=== PATIENT | male | born 2000 | race Two or more races ===

== ENCOUNTER 2021-10-24 09:51 | Emergency (ER) | payer MEDICAID ==
[~2021-10-24] VITALS: Ht 170.2 cm; Wt 56.8 kg
--- NOTE | 2021-10-24 11:44 | NUR ---
PT CHANGED INTO [facility] WITHOUT ISSUE
[2021-10-24 11:55] LABS: URINE AMPHETAMINE SCREEN NEGATIVE (Neg); URINE BARBITUATE SCREEN NEGATIVE (Neg); URINE BENZODIAZEPINES SCREEN POSITIVE (Neg); URINE CANNABINOID SCREEN POSITIVE (Neg); URINE COCAINE SCREEN POSITIVE (Neg); URINE METHADONE SCREEN NEGATIVE (Neg); URINE OPIATE SCREEN NEGATIVE (Neg); URINE PHENCYCLIDINE SCREEN NEGATIVE (Neg)
[2021-10-24 12:22] LABS: ALANINE AMINOTRANSFERASE 14 U/L (12-78); ALBUMIN 4.3 G/DL (3.4-5.0); ALBUMIN/GLOBULIN RATIO 1.2 (1.1-1.5); ALKALINE PHOSPHATASE 105 IU/L (46-116); ANION GAP 9 (8-16); ASPARTATE AMINO TRANSFERASE 15 U/L (10-37); BLOOD UREA NITROGEN 16 MG/DL (7-18); BUN/CREATININE RATIO 15.8 (5.4-32.0); CALCIUM 9.3 MG/DL (8.5-10.1); CHLORIDE 104 MMOL/L (99-107); CREATININE 1.01 MG/DL (0.60-1.10); GLUCOSE 96 MG/DL (70-104); POTASSIUM 3.6 MMOL/L (3.5-5.1); SODIUM 140 MMOL/L (135-145); TOTAL CARBON DIOXIDE 27.2 MMOL/L (24-32); TOTAL PROTEIN 7.8 G/DL (6.4-8.2); eGFR > 90 ML/MIN
[2021-10-24 12:54] LABS: BASOPHILS # (AUTO) 0.1 X10'3 (0-0.2); BASOPHILS % (AUTO) 0.6 % (0-1); EOSINOPHILS # (AUTO) 0.2 X10'3 (0-0.9); EOSINOPHILS % (AUTO) 2.3 % (0-6); HEMATOCRIT 46.2 % (42.0-52.0); HEMOGLOBIN 15.8 g/dl (14.0-17.9); LYMPHOCYTES # (AUTO) 1.2 X10'3 (1.1-4.8); LYMPHOCYTES % (AUTO) 12.4 % (21-51); MEAN CORPUSCULAR HEMOGLOBIN 30.3 PG (27.0-31.0); MEAN CORPUSCULAR HGB CONC 34.2 g/dL (33.0-36.5); MEAN CORPUSCULAR VOLUME 88.5 FL (78-98); MEAN PLATELET VOLUME 7.6 FL (7.4-10.4); MONOCYTES # (AUTO) 0.7 X10'3 (0-0.9); MONOCYTES % (AUTO) 7.2 % (2-12); NEUTROPHILS # (AUTO) 7.2 X10'3 (1.8-7.7); NEUTROPHILS % (AUTO) 77.5 % (42-75); PLATELET COUNT 271 X10'3 (140-440); RED BLOOD COUNT 5.22 X10'6 (4.70-6.10); RED CELL DISTRIBUTION WIDTH 13.4 % (11.5-14.5); WHITE BLOOD COUNT 9.3 X10'3 (4.5-11.0)
--- NOTE | 2021-10-24 13:04 | NUR ---
pt eloped out of ed bed [address] into [address]. security arrived and pt escorted back to room. pt yelling at staff stating he doesnt need to be here. verbal order from edmd lulu received for haldol 10mg, ativan 2mg, and benadryl 50mg im x1 dose now. order placed as received
[2021-10-24] MEDS ORDERED: LORazepam 2 mg/ml vial IM ONE (13:05)
[2021-10-24] MEDS ORDERED: diphenhydrAMINE 50 mg/ml inj IM ONE (13:05)
[2021-10-24] MEDS ORDERED: haloperidol lactate 5mg/ml inj IM ONE ×2 (13:05→21:25)
--- NOTE | 2021-10-24 14:03 | NUR ---
[facility] MENTAL HEALTH WORKER AT THE BEDSIDE TO EVALUATE PATIENT.
--- NOTE | 2021-10-24 15:56 | NUR ---
KATT HANSON WANTS HIM TO CALL BACK [phone] WHEN HE WAKES UP.
--- NOTE | 2021-10-24 16:49 | NUR ---
[facility] CALLED FOR INFORMATION ABOUT PATIENT, TO SEE IF HE QUALIFIES FOR PLACEMENT THERE.
--- NOTE | 2021-10-24 17:45 | NUR ---
Pt ambulated to bed #26 from main ED. Pt was calm/cooperative. Received report from ANDRE Jones
--- NOTE | 2021-10-24 18:04 | NUR ---
PT ACCEDPTED TO [facility]. ACCEPTING PROVIDER Vin NOLAN MD.
--- NOTE | 2021-10-24 18:06 | NUR ---
FAXED ETOH, UA, COVID-19 TO [facility].
--- NOTE | 2021-10-24 19:15 | NUR ---
Patient is awake, sitting at bedside. He states extreme frustration because his family doesn't want to allow him to come home. The patient makes direct contact with this proposal manager writer. He presents as disheveled. Patient denies S/I or H/I, or any hallucinations at this time. He tells this proposal manager writer that he has went days without sleeping. Patient denies taking home psychiatric medications, he states "I prefer the natural approach."
[2021-10-24] MEDS ORDERED: diphenhydrAMINE 25mg capsule PO ONE (19:45)
[2021-10-24] MEDS ORDERED: LORazepam 1 MG tablet PO ONE (19:45)
[2021-10-24 20:05] LABS: CLARITY,URINE CLEAR (Clear); GLUCOSE, URINE NEGATIVE (Neg); KETONES,URINE 15 mg/dl (Neg); LEUKOCYTE ESTERASE ,URINE NEGATIVE (Neg); NITRITES, URINE NEGATIVE (Neg); OCCULT BLOOD,URINE NEGATIVE (Neg); PROTEIN,URINE 100 mg/dl (Neg)
[2021-10-24 20:06] LABS: COLOR,URINE AMBER (Yellow); UA COLLECTION TYPE CLN CATCH MIDSTREAM
[2021-10-24 20:15] LABS: HYALINE CASTS 0-3 /LPF (NEGATIVE); MUCUS STRANDS MANY /LPF (Neg); SQUAMOUS EPITHELIAL CELL,UR FEW /LPF (FEW)
[2021-10-24 20:17] LABS: BACTERIA,URINE NONE SEEN /HPF (Neg); RBC,URINE 0-2 /HPF (0-2); WBC,URINE 0-4 /HPF (0-4)
--- NOTE | 2021-10-24 20:17 | NUR ---
This patient was given Ativan 2 mg and Benadryl 50 mg for his anxiety and lack of sleep. The patient is medication compliant with both meds. The patient had eaten a full dinner this evening. Fresh Ice water and warm blankets were given. The patient is attempting to sleep now.
--- NOTE | 2021-10-24 20:20 | NUR ---
A urine sample was taken for a UA as needed for future placement.
--- NOTE | 2021-10-24 22:15 | NUR ---
Patient is now sleeping. Frequent rounding for patient safety.
--- NOTE | 2021-10-25 01:55 | NUR ---
Patient sleeping quietly. No distress.
--- NOTE | 2021-10-25 05:01 | NUR ---
Patient is sleeping quietly on his left side.
--- NOTE | 2021-10-25 07:02 | NUR ---
Pt contiunes to rest comfortably, respirations even and unlabored.
--- NOTE | 2021-10-25 09:05 | NUR ---
Pt resting comfortably, respirations even and unlabored.
--- NOTE | 2021-10-25 11:00 | NUR ---
Pt on phone with family, conversation appropriate. Pt made aware he was accepted at [facility].
--- NOTE | 2021-10-25 12:59 | NUR ---
Pt ate 100% of his lunch and is now resting comfortably, respirations even and unlabored.
[2021-10-25 14:06] VITALS: BP 110/73
== END 2021-10-25 14:12 ==
LOC: ER 09:51
DX: R07.89 Other chest pain (principal); R45.851 Suicidal ideations; X83.8XXA Intentional self-harm by other specified means, initial encounter; Y93.89 Activity, other specified; Y92.89 Other specified places as the place of occurrence of the external cause; Y99.8 Other external cause status; Z20.822 Contact with and (suspected) exposure to COVID-19
CPT/HCPCS: 36415; 71045; 80053; 80305; 80320; 81001; 84443; 85025; 87635; 96372; 99285; C9803; J1630; Q0163

== ENCOUNTER 2023-06-21 15:22 | Emergency (ER) | payer MEDICAID | END 2023-06-21 17:45 | disposition left against medical advice (07) | LOC: ER 15:23 | DX: R50.9 Fever, unspecified (principal); Z53.21 Procedure and treatment not carried out due to patient leaving prior to being seen by health care provider ==

== ENCOUNTER 2025-05-02 16:25 | Emergency (ER) | payer MEDICAID ==
[~2025-05-02] VITALS: Ht 170.2 cm; Wt 63.3 kg
[2025-05-02 17:03] VITALS: PULSE 85
[2025-05-02 18:18] LABS: LEUKOCYTE ESTERASE ,URINE NEGATIVE (Neg); NITRITES, URINE NEGATIVE (Neg); OCCULT BLOOD,URINE NEGATIVE (Neg)
[2025-05-02 18:19] LABS: UA COLLECTION TYPE CLN CATCH MIDSTREAM
[2025-05-02 18:26] LABS: URINE AMPHETAMINE SCREEN NEGATIVE (Neg); URINE BARBITUATE SCREEN NEGATIVE (Neg); URINE BENZODIAZEPINES SCREEN NEGATIVE (Neg); URINE CANNABINOID SCREEN POSITIVE (Neg); URINE COCAINE SCREEN NEGATIVE (Neg); URINE METHADONE SCREEN NEGATIVE (Neg); URINE OPIATE SCREEN NEGATIVE (Neg); URINE PHENCYCLIDINE SCREEN NEGATIVE (Neg)
[2025-05-02 18:31] LABS: MEAN PLATELET VOLUME 7.2 FL (7.4-10.4); RED CELL DISTRIBUTION WIDTH 14.2 % (11.5-14.5)
[2025-05-02 18:56] LABS: CREATININE 0.82 MG/DL (0.60-1.10); ETHANOL 216 MG/DL (<10); TOTAL CARBON DIOXIDE 29.8 MMOL/L (24-32); eCRCL 122 ML/MIN; eGFR > 90 ML/MIN
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
--- NOTE | 2025-05-02 19:44 | RADIOLOGY REPORT ---
Procedure: DI CHEST,TWO VIEWS 05/02/2025 07:28 PM Indication: PRODUCTIVE COUGH, CHESET PAIN Comparison: None TECHNIQUE: DI CHEST,TWO VIEWS FINDINGS/IMPRESSION: The lungs are clear. The cardiomediastinal silhouette is unremarkable. No pleural effusion or pneumothorax. No acute osseous abnormality.
[2025-05-03] MEDS: OLANZapine 5mg rapidly disint. tablet PO ONE (01:06)
[2025-05-03] MEDS: nicotine 21mg patch - 24 hr TD ONE (02:11)
[2025-05-03 03:36] VITALS: BP 123/74; RESP 15; O2SAT 99
[2025-05-03 11:23] VITALS: TEMP 97.8
== END 2025-05-03 11:24 | disposition home or self-care (01) ==
LOC: ER 16:26
DX: R45.851 Suicidal ideations (principal); F10.129 Alcohol abuse with intoxication, unspecified; R05.9 Cough, unspecified; F12.90 Cannabis use, unspecified, uncomplicated; F14.90 Cocaine use, unspecified, uncomplicated; J45.909 Unspecified asthma, uncomplicated; G89.29 Other chronic pain; R40.2410 Glasgow coma scale score 13-15, unspecified time; Z20.822 Contact with and (suspected) exposure to COVID-19; Y90.7 Blood alcohol level of 200-239 mg/100 ml
CPT/HCPCS: 36415; 71046; 80048; 80305; 80320; 81003; 84443; 85025; 87811; 99285